=== PATIENT | male | born 1985 | race Caucasian/White ===

== ENCOUNTER 2017-08-29 23:08 | Emergency (ER) | payer OTHER ==
[~2017-08-29] VITALS: Ht 177.8 cm; Wt 108.9 kg
[~2017-08-29 23:08] MED LIST: CEPH500 PO; HYDACE5 PO; IBUP800 PO; LORA2 PO; MECL25 PO; SULTRIDS PO
== END 2017-08-30 01:25 | disposition home or self-care (01) ==
LOC: ER 23:08
DX: S80.02XA Contusion of left knee, initial encounter (principal); S20.211A Contusion of right front wall of thorax, initial encounter; F17.200 Nicotine dependence, unspecified, uncomplicated; V23.4XXA Motorcycle driver injured in collision with car, pick-up truck or van in traffic accident, initial encounter
CPT/HCPCS: 71046; 81000; 99284

== ENCOUNTER 2022-09-21 15:03 | Emergency (ER) | payer OTHER ==
[~2022-09-21] VITALS: Ht 175.3 cm; Wt 108.9 kg
[~2022-09-21 15:03] MED LIST changes: +ONDA4ODT MM
[2022-09-21] MEDS ORDERED: CEPH500 PO (16:56)
[2022-09-21] MEDS ORDERED: Norco 5-325 Ta1 EACH PO (16:56)
== END 2022-09-21 17:19 | disposition home or self-care (01) ==
LOC: ER 15:03
DX: S68.621A Partial traumatic transphalangeal amputation of left index finger, initial encounter (principal); W31.89XA Contact with other specified machinery, initial encounter; F17.200 Nicotine dependence, unspecified, uncomplicated; Z79.899 Other long term (current) drug therapy
CPT/HCPCS: 36415; 73140; J0690